=== PATIENT | female | born 1955 | race Caucasian/White ===

== ENCOUNTER 2023-01-22 17:46 | Emergency (ER) | payer MEDICARE, OTHER, SELFPAY ==
[2023-01-22 17:57] VITALS: BP 138/82; PULSE 84; RESP 18; TEMP 36.6; O2SAT 98
--- NOTE | 2023-01-22 18:07 | ED.URI ---
HPI - URI/Sore Throat General Chief Complaint: Upper Respiratory Infection Stated Complaint: Ear Pain/Sore Throat Time Seen by Provider: 01/22/23 18:09 Source: patient, RN notes reviewed and old records reviewed Mode of arrival: ambulatory Limitations: no limitations History of Present Illness HPI Narrative: 67-YEAR-OLD FEMALE WHO PRESENTS TO [facility] WITH COMPLAINTS OF EAR PAIN AND SORE THROAT TODAY. Patient reports that she wears CPAP and her throat started hurting after she took it off this morning, Patient also reports that she has had some hard wax in her ears and she thinks she got it out but she continues to have some pain to the right ear. Patient admits to some sinus congestion with drainage, denies any fevers, chills or sweats ro any body aches. MD elicited complaint: sore throat and other (EAR PAIN) Pertinent past history: seasonal allergies Onset (ago): day(s) (today) Pain scale (0-10): 2 Able to tolerate fluids by mouth: Yes Treatments prior to arrival: other (one dose of amoxicillin) Related Data Home Medications Medication Instructions Recorded Confirmed alprazolam 0.5 mg tablet 0.5 mg PO TID 01/22/23 01/22/23 aspirin 81 mg chewable tablet 81 mg PO BID 01/22/23 01/22/23 ergocalciferol (vitamin D2) 1,250 1,250 mcg PO WEEKLY 01/22/23 01/22/23 mcg (50,000 unit) capsule furosemide 20 mg tablet 20 mg PO TID 01/22/23 01/22/23 lisinopril 10 mg tablet 10 mg PO DAILY 01/22/23 01/22/23 metoprolol succinate 25 mg 25 mg PO DAILY 01/22/23 01/22/23 tablet,extended release 24 hr montelukast 10 mg tablet 10 mg PO DAILY 01/22/23 01/22/23 potassium chloride 20 mEq 20 meq PO BID 01/22/23 01/22/23 tablet,extended release(part/cryst) (Klor-Con M) rosuvastatin 10 mg tablet 10 mg PO DAILY 01/22/23 01/22/23 Allergies Allergy/AdvReac Type Severity Reaction Status Date / Time metronidazole [From Flagyl] Allergy Mild Unknown Verified 01/22/23 18:14 Review of Systems Review of Systems: CONSTITUTIONAL: Denies malaise, chills, sweats, or fever. EYES: Denies visual changes, redness, or discharge. ENT: Reports rhinorrhea, congestion, no sinus pain, reports bilateral otalgia and sore throat. CARDIOVASCULAR: Denies chest pain, palpitations, or edema. RESPIRATORY: Reports no cough.? Denies dyspnea. GASTROINTESTINAL: Denies abdominal pain, nausea, vomiting, diarrhea SKIN: Denies rash or itching. MUSCULOSKELETAL: Denies myalgia. NEUROLOGIC: Denies headache. All systems reviewed & are unremarkable except as noted in HPI and below PMFSH Past Medical History Medical History (Updated 01/24/23 @ 16:32 by Loretta Donaldson NP) Elevated cholesterol Hypertension Sleep apnea treated with continuous positive airway pressure (CPAP) Surgical History Surgical History (Updated 01/24/23 @ 16:18 by Loretta Donaldson NP) History of ankle surgery right History of cholecystectomy History of total bilateral knee replacement (TKR) History of tubal ligation S/P tonsillectomy and adenoidectomy Social History Social History (Updated 01/24/23 @ 16:24 by Loretta Donaldson NP) Smoking status: Never smoker Alcohol intake: current Alcohol use details: rare social Substance use type: does not use Living arrangements: with family Gender identity (if verbalized by the patient): Female Comments At time of signature, agree with nursing past medical, surgical, social and family history. There is no relevant family history pertinent to the presenting complaint Exam Narrative: GENERAL: Well-appearing, well-nourished, and in no acute distress. HEAD: Normocephalic EYES: PERRLA, conjunctivae clear ENT: Nares clear, turbinates edematous and erythematous, clear discharge. Mucous membranes moist. Right TM red with no drainage Left TM pearly finnegan with dull light reflex ; no tragal tenderness. Oropharynx erythematous without lesions. Tonsils not present and without exudate, no drooling, no hoarseness, no trismus,
== END 2023-01-22 18:30 | disposition home or self-care (01) ==
PROVIDERS: Emergency Provider Registered Nurse
DX: H66.90 Otitis media, unspecified, unspecified ear (principal); J06.9 Acute upper respiratory infection, unspecified; I10 Essential (primary) hypertension; Z79.82 Long term (current) use of aspirin
CPT/HCPCS: 87081; 87880; 99213; G0463

== ENCOUNTER 2023-02-16 16:16 | Emergency (ER) | payer MEDICARE, OTHER, SELFPAY ==
[2023-02-16 16:24] VITALS: BP 133/110; PULSE 86; RESP 20; TEMP 36.6; O2SAT 99
--- NOTE | 2023-02-16 16:44 | ED.GENADULT ---
HPI - General Adult General Chief complaint: Skin/Abscess/Foreign Body Stated complaint: needs tetnus shot Source: patient Mode of arrival: ambulatory Limitations: no limitations History of Present Illness HPI narrative: Patient presents for evaluation of a wound to the right hand that occurred just prior to arrival. She reached into a bag that keeps some lawn tools at her home just prior to arrival cut herself in the process. Bleeding was controlled. She came in as she did not know the date of her last tetanus. She is not diabetic. Denies any pain. She does not smoke. No paresthesias. Related Data Home Medications Medication Instructions Recorded Confirmed alprazolam 0.5 mg tablet 0.5 mg PO TID 01/22/23 02/16/23 aspirin 81 mg chewable tablet 81 mg PO BID 01/22/23 02/16/23 ergocalciferol (vitamin D2) 1,250 1,250 mcg PO WEEKLY 01/22/23 02/16/23 mcg (50,000 unit) capsule metoprolol succinate 25 mg 25 mg PO DAILY 01/22/23 02/16/23 tablet,extended release 24 hr potassium chloride 20 mEq 20 meq PO BID 01/22/23 02/16/23 tablet,extended release(part/cryst) (Klor-Con M) rosuvastatin 10 mg tablet 10 mg PO DAILY 01/22/23 02/16/23 meloxicam 15 mg tablet 15 mg PO DAILY 02/16/23 02/16/23 Allergies Allergy/AdvReac Type Severity Reaction Status Date / Time metronidazole [From Flagyl] Allergy Mild Unknown Verified 01/22/23 18:14 Review of Systems Review of Systems: CONSTITUTIONAL: Denies fever, chills, or sweats. EYES: Denies visual changes, redness, or discharge. ENT: Denies rhinorrhea, congestion, sore throat, or otalgia. CARDIOVASCULAR: Denies chest pain, palpitations, or edema. RESPIRATORY: Denies cough or dyspnea. GASTROINTESTINAL: Denies abdominal pain, nausea, vomiting, or diarrhea. GENITOURINARY: Denies dysuria or hematuria. SKIN: Reports wound to the right hand. MUSCULOSKELETAL: Denies back pain, joint pain, or myalgia. NEUROLOGIC: Denies headache, numbness, dizziness, or weakness. PSYCHIATRIC: Denies anxiety or depression. [facility] Past Medical History Medical History Elevated cholesterol Hypertension Sleep apnea treated with continuous positive airway pressure (CPAP) Surgical History Surgical History History of ankle surgery right History of cholecystectomy History of total bilateral knee replacement (TKR) History of tubal ligation S/P tonsillectomy and adenoidectomy Family History Family History Mother No problems noted. Social History Social History Smoking status: Never smoker Alcohol intake: current Alcohol use details: rare social Substance use type: does not use Living arrangements: with family Gender identity (if verbalized by the patient): Female Sexual Orientation (if Verbalized by the Patient): Straight or Heterosexual Spiritual care concerns: No Exam Narrative: GENERAL: Well-appearing, well-nourished, and in no acute distress. HEAD: Normocephalic, atraumatic. EYES: PERRLA and EOMI. ENT: Nares clear, no rhinorrhea or epistaxis. Mucous membranes moist. Oropharynx without tonsillar hypertrophy exudate or other lesions. Bilateral TMs pearly finnegan nonbulging NECK: Supple. No adenopathy or masses. No carotid bruits or JVD CHEST: Clear to auscultation. No respiratory distress. No wheezes rales or rhonchi HEART: Regular rate and rhythm. No murmur heard. Normal peripheral pulses. ABDOMEN: Soft, nontender, nondistended, normal active bowel sounds. EXTREMITIES: Normal range of motion. No edema. SKIN: Approximately 1 cm skin tear flap formation to the dorsal aspect of the right hand. No bleeding at the present time. NEURO: No focal deficits. Alert and oriented x3. PSYCH: Normal mood and affect. Course Course Emergency [facility]
[2023-02-16] MEDS: TETANUS,DIPHTHERIA,AC PERTUSSIS ADULT (0.5 ML) BOOSTRIX IM (16:52)
== END 2023-02-16 16:58 | disposition home or self-care (01) ==
PROVIDERS: Emergency Provider Nurse Practitioner; PCP Family Medicine
DX: S61.411A Laceration without foreign body of right hand, initial encounter (principal); I10 Essential (primary) hypertension; Z79.82 Long term (current) use of aspirin; Z79.1 Long term (current) use of non-steroidal anti-inflammatories (NSAID); Z23 Encounter for immunization; W27.8XXA Contact with other nonpowered hand tool, initial encounter
CPT/HCPCS: 12001; 90471; 90715; 99212; G0463